=== PATIENT | female | born 1960 | race Caucasian/White ===

== ENCOUNTER 2021-05-06 16:22 | Outpatient (CLI) | payer OTHER | END 2021-05-06 16:23 | disposition home or self-care (01) | LOC: CSHRAD 16:22 | PROVIDERS: ATTEND Psychiatry & Neurology Neurology | DX: M79.641 Pain in right hand (principal); M54.50 Low back pain, unspecified; M25.552 Pain in left hip; M16.12 Unilateral primary osteoarthritis, left hip; S32.019A Unspecified fracture of first lumbar vertebra, initial encounter for closed fracture; M47.816 Spondylosis without myelopathy or radiculopathy, lumbar region | CPT/HCPCS: 72100 ==

== ENCOUNTER 2022-02-19 11:28 | Outpatient (CLI) | payer SELFPAY | END 2022-02-19 11:29 | disposition home or self-care (01) | LOC: CSHULT 11:28 | PROVIDERS: ATTEND Family Medicine | DX: R10.11 Right upper quadrant pain (principal); R10.13 Epigastric pain; Z87.19 Personal history of other diseases of the digestive system; K80.20 Calculus of gallbladder without cholecystitis without obstruction | CPT/HCPCS: 76705 ==

== ENCOUNTER 2024-05-19 08:00 | Outpatient (CLI) | payer MEDICARE | END 2024-05-19 08:01 | disposition home or self-care (01) | LOC: CSHULT 08:00 | PROVIDERS: ATTEND Family Medicine | DX: B19.20 Unspecified viral hepatitis C without hepatic coma (principal) | CPT/HCPCS: 76705 ==

== ENCOUNTER 2025-04-14 10:53 | Outpatient (CLI) | payer MEDICARE, BC | END 2025-04-14 10:54 | disposition home or self-care (01) | LOC: CSHCT 10:53 | PROVIDERS: ATTEND Student in an Organized Health Care Education/Training Program | DX: R91.1 Solitary pulmonary nodule (principal) | CPT/HCPCS: 71250 ==